=== PATIENT | female | born 1945 | race Caucasian/White ===

== ENCOUNTER 2019-08-22 09:22 | Day surgery (SDC) | payer OTHER ==
[2019-08-21 15:31] VITALS: BMI 27.2
[2019-08-22 11:29] VITALS: TEMP 97.9
[2019-08-22 16:59] VITALS: BP 146/70; PULSE 69
--- NOTE | 2019-08-26 10:02 | PATH ---
Surgical Pathology Report Patient Name: ESTEVAN BAPTISTE [facility]. Rec. #: [id number] /Age/Gender: 1945 (Age: 73) / F Account: [id number] Location: U-ENDOSCOPY Taken: 08/22/2019 Received: 08/22/2019 Reported: 08/26/2019 Physicians: Arron Means M.D. Specimen(s) Received A: SECOND PORTION DUODENUM AND DUODENAL BULB B: ANTRUM C: GE JUCTION D: POLYP RECTUM E: POLYP SIGMOID Clinical History Anemia Postoperative diagnosis: erosive gastritis, hiatal hernia, colon polyp, hemorrhoid, diverticulosis Final Diagnosis A. SECOND PORTION DUODENUM AND DUODENUM BULB, BIOPSY: DUODENUM MUCOSA WITH CHRONIC DUODENITIS. B. ANTRUM, BIOPSY: GASTRIC MUCOSA WITH REACTIVE GASTROPATHY. IMMUNOSTAIN FOR H. PYLORI IS NEGATIVE. NEGATIVE FOR INTESTINAL METAPLASIA. C. GE JUNCTION, BIOPSY: GASTROESOPHAGEAL JUNCTIONAL MUCOSA WITH REFLUX ESOPHAGITIS, MODERATE TO SEVERE. NEGATIVE FOR INTESTINAL METAPLASIA. D. RECTAL POLYP, POLYPECTOMY: HYPERPLASTIC POLYP. E. SIGMOID POLYP, POLYPECTOMY: HYPERPLASTIC POLYP. Electronically Signed Mckenzie Newman M.D. Gross Description A. Received in formalin, labeled "second portion duodenum and duodenum bulb" are 4 cherry, irregular portions of soft tissue measuring 0.1 to 0.3 cm. in greatest dimension. The specimens are submitted in toto in one cassette. B. Received in formalin, labeled "antrum" are 4 cherry, irregular portion of soft tissue measuring 0.1 to 0.3 cm. in greatest dimension. The specimens are submitted in toto in one cassette. C. Received in formalin, labeled "GE junction" are 2 cherry, irregular portions of soft tissue measuring 0.3 to 0.4 cm. in greatest dimension. The specimens are submitted in toto in one cassette. D. Received in formalin, labeled "rectum polyp" is a cherry, irregular portion of soft tissue measuring 0.2 cm. in greatest dimension. The specimens are submitted in toto in one cassette. E. Received in formalin, labeled "sigmoid polyp" is a cherry, irregular portion of soft tissue measuring 0.3 cm. in greatest dimension. The specimens are submitted in toto in one cassette. __ KWS/08/22/2019 lew/08/22/2019
== END 2019-08-22 12:40 | disposition home or self-care (01) ==
LOC: JASU-ENDO 09:22
PROVIDERS: ATTEND Internal Medicine Gastroenterology
PROC: 0DBN8ZX Excision of Sigmoid Colon, Via Natural or Artificial Opening Endoscopic, Diagnostic (ICD-10-PCS; 2019-08-22)
PROC: 0DB98ZX Excision of Duodenum, Via Natural or Artificial Opening Endoscopic, Diagnostic (ICD-10-PCS; 2019-08-22)
PROC: 0DB68ZX Excision of Stomach, Via Natural or Artificial Opening Endoscopic, Diagnostic (ICD-10-PCS; 2019-08-22)
PROC: 0DB48ZX Excision of Esophagogastric Junction, Via Natural or Artificial Opening Endoscopic, Diagnostic (ICD-10-PCS; 2019-08-22)
PROC: 0DBP8ZX Excision of Rectum, Via Natural or Artificial Opening Endoscopic, Diagnostic (ICD-10-PCS; principal; 2019-08-22 10:15)
DX: D50.9 Iron deficiency anemia, unspecified (principal); K63.5 Polyp of colon; K57.30 Diverticulosis of large intestine without perforation or abscess without bleeding; K64.8 Other hemorrhoids; K29.80 Duodenitis without bleeding; K31.9 Disease of stomach and duodenum, unspecified; K21.0 Gastro-esophageal reflux disease with esophagitis; I10 Essential (primary) hypertension; E78.5 Hyperlipidemia, unspecified; K21.9 Gastro-esophageal reflux disease without esophagitis; K44.9 Diaphragmatic hernia without obstruction or gangrene
CPT/HCPCS: 88305-TC; 88342-TC

== ENCOUNTER 2021-01-14 06:25 | Day surgery (SDC) | payer OTHER ==
[2021-01-14 10:05] VITALS: TEMP 98.1; BMI 27.6
[2021-01-14 12:28] VITALS: BP 170/73; PULSE 64
== END 2021-01-14 12:34 | disposition home or self-care (01) ==
LOC: JASU-SURG 06:25
PROVIDERS: ATTEND Internal Medicine Gastroenterology
PROC: 0DB78ZX Excision of Stomach, Pylorus, Via Natural or Artificial Opening Endoscopic, Diagnostic (ICD-10-PCS; 2021-01-14)
PROC: 0DB98ZX Excision of Duodenum, Via Natural or Artificial Opening Endoscopic, Diagnostic (ICD-10-PCS; principal; 2021-01-14 10:30)
DX: K44.9 Diaphragmatic hernia without obstruction or gangrene (principal); K29.00 Acute gastritis without bleeding; K31.89 Other diseases of stomach and duodenum; K56.2 Volvulus
CPT/HCPCS: 88305-TC; 88342-TC

== ENCOUNTER 2021-07-01 06:58 | Day surgery (SDC) | payer OTHER ==
[2021-06-29 16:34] VITALS: BMI 28.1
[~2021-07-01 06:58] MED LIST: LIDOCAINE HCL/PF 2% SDV 5ML VIAL SQ ONE
[2021-07-01 07:23] VITALS: TEMP 97.8
[2021-07-01] MEDS ORDERED: MIDAZOLAM HCL 2 MG/2 ML SINGLE DOSE VIAL ONE (09:01)
[2021-07-01] MEDS ORDERED: ONDANSETRON 4 MG/2 ML VIAL ONE (09:08)
[2021-07-01] MEDS ORDERED: ceFAZolin SODIUM 1 GM VIAL ONE (09:08)
[2021-07-01] MEDS ORDERED: PROPOFOL 20 ML ONE (09:08)
[2021-07-01] MEDS ORDERED: DEXAMETHASONE SOD PHOSPHATE 4 MG/1 ML VIAL ONE (09:08)
[2021-07-01] MEDS ORDERED: LIDOCAINE HCL/PF 2% SDV 5ML VIAL SQ ONE (09:27)
[2021-07-01] MEDS ORDERED: LIDOCAINE HCL 2% (20ML MULTI-DOSE VIAL) ONE (09:45)
[2021-07-01 10:02] VITALS: PULSE 64
[2021-07-01 10:21] VITALS: BP 145/67
== END 2021-07-01 10:30 | disposition home or self-care (01) ==
LOC: FASU 06:58
PROVIDERS: ATTEND Orthopaedic Surgery
PROC: 0LN70ZZ Release Right Hand Tendon, Open Approach (ICD-10-PCS; principal; 2021-07-01 08:30)
DX: M65.341 Trigger finger, right ring finger (principal)

== ENCOUNTER 2024-07-09 18:48 | Observation (INO) | payer OTHER ==
[2024-07-09] MEDS ORDERED: MAG HYDROX/AL HYDROX/SIMETH 30 ML UNIT-DOSE CUP ONE (20:11)
[2024-07-09] MEDS ORDERED: PANTOPRAZOLE SODIUM 40 MG VIAL ONE (20:11)
[2024-07-09] MEDS ORDERED: ONDANSETRON 4 MG/2 ML VIAL ONE (20:11)
[2024-07-09 20:16] LABS: BASO % 0.2 % (0-2.0); HEMATOCRIT 31.5 % (32.4-45.2); HEMOGLOBIN 10.7 GM/dL (10.7-15.3); LYMPH % 23.2 % (8-40); MCH 29.8 pg (25.7-33.7); MCHC 34.1 g/dl (32.0-36.0); MEAN CELL VOLUME 87.3 fl (80-96); MEAN PLT VOLUME 8.8 fl (7.5-11.1); MONO % 15.1 % (3.8-10.2); NEUT % 60.5 % (42.8-82.8); PLATELET COUNT 191 10^3/uL (134-434); RBC 3.61 M/mm3 (3.60-5.2); RDW 13.4 % (11.6-15.6); WHITE BLOOD COUNT 6.7 K/mm3 (4.0-10.0)
[2024-07-09] MEDS: PANTOPRAZOLE SODIUM 40 MG VIAL IVPUSH ONE (20:16)
[2024-07-09] MEDS: MAG HYDROX/AL HYDROX/SIMETH 30 ML UNIT-DOSE CUP PO ONE (20:16)
[2024-07-09] MEDS: ONDANSETRON 4 MG/2 ML VIAL IVPUSH ONE (20:16)
[2024-07-09 20:34] LABS: POTASSIUM 3.1 mmol/L (3.5-5.1)
[2024-07-09 20:35] LABS: CALCIUM 8.6 mg/dL (8.5-10.1)
[2024-07-09 20:36] LABS: BLOOD UREA NITROGEN 16.3 mg/dL (7-18)
[2024-07-09 20:41] LABS: BILIRUBIN,TOTAL 0.5 mg/dL (0.2-1); TOT PROT 7.2 g/dl (6.4-8.2)
[2024-07-09] MEDS ORDERED: KCL 10 MEQ IVPB 10 MEQ/100 ML INFUS.BAG IVPB ONE ×3 (21:19→23:18)
[2024-07-09] MEDS: SODIUM CHLORIDE 0.9% 500 ML INFUS.BAG IV ONE (21:26)
[2024-07-09] MEDS: KCL 10 MEQ IVPB 10 MEQ/100 ML INFUS.BAG IVPB SCH (21:26)
[2024-07-09] MEDS ORDERED: METOCLOPRAMIDE HCL INJECTION 10 MG/2 ML VIAL ONE (22:18)
[2024-07-09] MEDS: METOCLOPRAMIDE HCL INJECTION 10 MG/2 ML VIAL IVPB ONE (22:21)
[2024-07-09 22:56] LABS: MAGNESIUM 1.4 mg/dL (1.8-2.4)
[2024-07-09 22:59] LABS: PHOSPHOROUS 2.7 mg/dL (2.5-4.9)
[2024-07-09 23:05] LABS: PH,URINE 6.5 (5.0-8.0); URINE APPEARANCE CLEAR; URINE BILIRUBIN NEGATIVE (NEGATIVE); URINE COLOR YELLOW; URINE GLUCOSE (UA) NEGATIVE (NEGATIVE); URINE KETONE NEGATIVE (NEGATIVE); URINE LEUK ESTERASE NEGATIVE (NEGATIVE); URINE NITRITE NEGATIVE (NEGATIVE); URINE PROTEIN NEGATIVE (NEGATIVE); URINE UROBILINOGEN 0.2 mg/dL (0.2-1.0)
[2024-07-09 23:25] LABS: MAGNESIUM 1.5 mg/dL (1.8-2.4)
[2024-07-09 23:29] LABS: PHOSPHOROUS 2.5 mg/dL (2.5-4.9)
[2024-07-10] MEDS ORDERED: MAGNESIUM SULFATE IN WATER 2 GM/50 ML IVPB IVPB ONE ×2 (00:47→08:03)
[2024-07-10] MEDS: MAGNESIUM SULF 50% (8.12 MEQ/2 ML-1 GM VIAL) IVPB ONE (00:52)
[2024-07-10] MEDS: guaiFENesin 600 MG TABLET.ER (FP) PO SCH (02:01)
[2024-07-10 03:44] LABS: POTASSIUM 3.3 mmol/L (3.5-5.1)
[2024-07-10 03:46] LABS: CALCIUM 8.3 mg/dL (8.5-10.1)
[2024-07-10 03:47] LABS: BLOOD UREA NITROGEN 12.8 mg/dL (7-18)
[2024-07-10 03:50] LABS: CREATININE 0.9 mg/dL (0.55-1.3)
[2024-07-10] MEDS ORDERED: SODIUM CHLORIDE 1,000 ML IV SCH ×2 (04:45→13:45)
[2024-07-10] MEDS: SODIUM CHLORIDE 1,000 ML with POTASSIUM CHLORIDE 40 MEQ IV SCH (05:40)
[2024-07-10] MEDS ORDERED: predniSONE 20 MG TABLET (UD) ONE (05:41)
[2024-07-10] MEDS: predniSONE 20 MG TABLET (UD) PO ONE (05:45)
[2024-07-10] MEDS: MAGNESIUM 2GM/50ML STERILE WATER IVPB IVPB ONE (08:10)
[2024-07-10 09:05] LABS: POTASSIUM 3.3 mmol/L (3.5-5.1)
[2024-07-10 09:06] LABS: POTASSIUM 3.4 mmol/L (3.5-5.1)
[2024-07-10 09:07] LABS: CALCIUM 8.2 mg/dL (8.5-10.1)
[2024-07-10 09:08] LABS: BLOOD UREA NITROGEN 12.9 mg/dL (7-18)
[2024-07-10 09:09] LABS: CALCIUM 8.2 mg/dL (8.5-10.1)
[2024-07-10 09:10] LABS: ALBUMIN 3.5 g/dl (3.4-5.0); BLOOD UREA NITROGEN 12.3 mg/dL (7-18); CREATININE 0.9 mg/dL (0.55-1.3); MAGNESIUM 2.1 mg/dL (1.8-2.4)
[2024-07-10 09:13] LABS: CREATININE 0.9 mg/dL (0.55-1.3); PHOSPHOROUS 2.4 mg/dL (2.5-4.9)
[2024-07-10 09:15] LABS: BILIRUBIN,TOTAL 0.5 mg/dL (0.2-1); TOT PROT 6.4 g/dl (6.4-8.2)
[2024-07-10] MEDS ORDERED: ENOXAPARIN NA (PORCINE) 40 MG/0.4 ML DISP.SYRIN SQ ONE (09:25)
[2024-07-10] MEDS: LOSARTAN POTASSIUM 25 MG TABLET PO SCH (09:59)
[2024-07-10] MEDS: ENOXAPARIN NA (PORCINE) 40 MG/0.4 ML DISP.SYRIN SQ SCH (09:59)
[2024-07-10] MEDS: PANTOPRAZOLE 40 MG TABLET PO SCH (10:00)
[2024-07-10] MEDS: CHOLECALCIFEROL (VIT D3) 1,000 UNIT (25 MCG) TABLET PO SCH (10:00)
[2024-07-10] MEDS: BUDESONIDE/FORMETEROL FUMARATE 160/4.5 mcg INHALER IH SCH (11:10)
[2024-07-10 15:08] VITALS: BMI 28.7
[2024-07-10] MEDS: FLUoxetine HCL 20 MG CAPSULE PO SCH (15:27)
[2024-07-10] MEDS: SODIUM CHLORIDE 1 GM TABLET PO SCH (15:27)
[2024-07-10] MEDS: LOSARTAN POTASSIUM 50 MG TABLET PO ONE (15:27)
[2024-07-10] MEDS: LOSARTAN POTASSIUM 25 MG TABLET PO ONE (15:35)
[2024-07-10 16:16] LABS: CALCIUM 8.7 mg/dL (8.5-10.1)
[2024-07-10 16:17] LABS: BLOOD UREA NITROGEN 12.2 mg/dL (7-18); POTASSIUM 3.7 mmol/L (3.5-5.1)
[2024-07-10 16:20] LABS: CREATININE 1.2 mg/dL (0.55-1.3)
[2024-07-10] MEDS: POTASSIUM CHLORIDE 40 MEQ in SODIUM CHLORIDE 1,000 ML IV SCH (17:03)
[2024-07-10] MEDS: POTASSIUM CHLORIDE ORAL LIQUID 20 MEQ/15 ML PO ONE (18:20)
[2024-07-10] MEDS: SODIUM CHLORIDE 1 GM TABLET PO ONE (18:20)
[2024-07-10] MEDS: MAG HYDROX/AL HYDROX/SIMETH 30 ML UNIT-DOSE CUP PO ONE (19:47)
[2024-07-10] MEDS: ATORVASTATIN CA 20 MG TABLET (FP) PO SCH (21:35)
[2024-07-11] MEDS: BENZOCAINE/MENTHOL 1 EACH LOZENGE MM PRN (05:05)
[2024-07-11 09:07] LABS: BLOOD UREA NITROGEN 10.1 mg/dL (7-18); CALCIUM 8.2 mg/dL (8.5-10.1); MAGNESIUM 2.2 mg/dL (1.8-2.4)
[2024-07-11 09:10] LABS: HEMATOCRIT 26.9 % (32.4-45.2); HEMOGLOBIN 9.2 GM/dL (10.7-15.3); MCHC 34.3 g/dl (32.0-36.0); MEAN CELL VOLUME 87.4 fl (80-96); MEAN PLT VOLUME 9.6 fl (7.5-11.1); PLATELET COUNT 177 10^3/uL (134-434); RBC 3.07 M/mm3 (3.60-5.2); RDW 13.5 % (11.6-15.6); WHITE BLOOD COUNT 10.3 K/mm3 (4.0-10.0)
[2024-07-11 09:11] LABS: CREATININE 0.9 mg/dL (0.55-1.3)
[2024-07-11] MEDS: predniSONE 20 MG TABLET (UD) PO SCH (09:34)
[2024-07-11] MEDS: LOSARTAN POTASSIUM 50 MG TABLET PO SCH (09:34)
[2024-07-11] MEDS: PANTOPRAZOLE 40 MG TABLET PO SCH (09:35)
[2024-07-11] MEDS: NEBIVOLOL 10 MG TABLET (FP) PO SCH (09:59)
[2024-07-11] MEDS ORDERED: predniSONE 20 MG TABLET (UD) PO SCH (10:00)
[2024-07-11] MEDS: ALBUTEROL SO4 2.5/IPRATROPIUM 0.5 INH SOL 3 ML VIAL.NEB. NEB ONE (11:53)
[2024-07-11] MEDS ORDERED: ALBUTEROL SO4 HFA INHALER IH PRN (12:34)
[2024-07-11 13:23] VITALS: PULSE 76; RESP 22; TEMP 98.2
[2024-07-11] MEDS: FUROSEMIDE 20 MG TABLET (FP) PO SCH (14:48)
[2024-07-11 15:35] VITALS: BP 148/78
[2024-07-12] MEDS ORDERED: POTASSIUM CHLORIDE TABS 10 MEQ TABLET.ER (FP) PO SCH (10:00)
== END 2024-07-11 15:33 | disposition home or self-care (01) ==
LOC: JER 18:48 → JERBED 22:03 → J7W 07-10 14:02
PROVIDERS: ADMIT Internal Medicine; ATTEND Nurse Practitioner
PROC: 3E0F7GC Introduction of Other Therapeutic Substance into Respiratory Tract, Via Natural or Artificial Opening (ICD-10-PCS; principal; 2024-07-09)
PROC: 3E023GC Introduction of Other Therapeutic Substance into Muscle, Percutaneous Approach (ICD-10-PCS; 2024-07-09)
PROC: 3E033GC Introduction of Other Therapeutic Substance into Peripheral Vein, Percutaneous Approach (ICD-10-PCS; 2024-07-09)
PROC: 3E0337Z Introduction of Electrolytic and Water Balance Substance into Peripheral Vein, Percutaneous Approach (ICD-10-PCS; 2024-07-09)
DX: E87.1 Hypo-osmolality and hyponatremia (principal); E78.5 Hyperlipidemia, unspecified; E87.6 Hypokalemia; E83.42 Hypomagnesemia; K29.70 Gastritis, unspecified, without bleeding; K57.92 Diverticulitis of intestine, part unspecified, without perforation or abscess without bleeding; I12.9 Hypertensive chronic kidney disease with stage 1 through stage 4 chronic kidney disease, or unspecified chronic kidney disease; N18.9 Chronic kidney disease, unspecified; K21.9 Gastro-esophageal reflux disease without esophagitis; K44.9 Diaphragmatic hernia without obstruction or gangrene; Z98.890 Other specified postprocedural states; Z88.8 Allergy status to other drugs, medicaments and biological substances
CPT/HCPCS: 36415; 71046-TC-FY; 80048; 80053; 81003; 82436; 82533; 83735; 83930; 83935; 84100; 84133; 84300; 84439; 84443; 84484; 85025; 85027; 87633; 93005; 93010; 94640; 96365; 96366; 96372; 96375; 96376; 99285-25; G0378